=== PATIENT | male | born 1995 | race Caucasian/White ===

== ENCOUNTER 2018-03-31 16:38 | Emergency (ER) | payer OTHER ==
[2018-03-31 16:49] VITALS: BP 148/82
--- NOTE | 2018-03-31 17:00 | UC ---
Skin Complaint HPI - HPI Summary HPI Summary: 22 yo male presents with LEFT ear pain, swelling, and infected piercings. He tells me that 2 months ago he had two stainless steel tulalip piercings placed in the superior part of his left ear. Since yesterday this area has gotten very painful, red, swollen, and has some clear drainage. He tried to remove the piercings, but could not. He went to a local piercing establishment and asked them to remove the earrings, but they said that they had no tools to do this and to see a doctor - prompting his visit to the . Denies fever or chills - History of Current Complaint Chief Complaint: [facility] Time Seen by Provider: 03/31/18 16:59 Stated Complaint: EAR PEIRCING SWOLLEN AND RED Hx Obtained From: Patient Onset/Duration: Sudden Onset Onset Severity: Moderate Current Severity: Moderate Pain Intensity: 6 Pain Scale Used: 0-10 Numeric - Allergy/Home Medications Allergies/Adverse Reactions: Allergies Allergy/AdvReac Type Severity Reaction Status Date / Time No Known Allergies Allergy Verified 03/31/18 16:49 Home Medications: Home Medications Doxycycline Monohydrate 50 mg PO DAILY WITH MEAL 03/31/18 [History Confirmed ] Review of Systems Constitutional: Negative Skin: Other - Left ear redness, pain, and swelling Eyes: Negative ENT: Negative Respiratory: Negative Cardiovascular: Negative Neurovascular: Negative Musculoskeletal: Negative Neurological: Negative Psychological: Negative All Other Systems Reviewed And Are Negative: Yes PMH/Surg Hx/FS Hx/Imm Hx - Additional Past Medical History Additional PMH: Acne - Surgical History Surgical History: None Surgery Procedure, Year, and Place: denies - Social History Occupation: Student Lives: With Family Alcohol Use: Weekly Substance Use Type: None Smoking Status (MU): Never Smoked Tobacco Physical Exam - Summary Physical Exam Summary: GENERAL: NAD. WDWN. No pain distress. SKIN: See ear HEENT: Head: AT/NC Eyes: EOM intact. Conjunctiva clear without inflammation or discharge. Ears: Hearing grossly normal. LEFT superior pinna with moderate erythema and edema. Moderate TTP around two piercing sites. TM WNL. NECK: Supple. Nontender. No lymphadenopathy. CHEST: CTAB. No r/r/w. No accessory muscle use. Breathing comfortably and in no distress. CV: RRR. Without m/r/g. Pulses intact. Cap refill <2seconds NEURO: Alert. PSYCH: Age appropriate behavior. Triage Information Reviewed: Yes Vital Signs: Initial Vital Signs Temp 98.8 F 03/31/18 16:44 Pulse 80 03/31/18 16:44 Resp 18 03/31/18 16:44 BP 148/82 03/31/18 16:44 Pulse Ox 100 03/31/18 16:44 Vital Signs Reviewed: Yes Course/Dx - Course Course Of Treatment: The procedure was explained to the pt and all questions were answered. A time out was performed, witnessed, and signed. The area was cleansed with an alcohol pad. 1mL of 2% lidocaine without epi was administered and good anesthetization was achieved. Pt states that the piercings pull apart. This was attempted x3 with adsons, splinter forceps, hemostats, and manual gripping without success. Pt began to experience increased pain despite lidocaine. The procedure was stopped. I am unable to use a ring cutter or wire cutters as the piercings allow <2-3mm of area to work with. Therefore I will refer him to ENT for possible surgical removal. Will cover him with Keflex for cellulitis. Pt agreeable to plan. - Diagnoses Provider Diagnoses: Left ear piercing infection Discharge - Sign-Out/Discharge Documenting (check all that apply): Patient Departure All imaging exams completed and their final reports reviewed: No Studies - Discharge Plan Condition: Stable Disposition: HOME Prescriptions: Cephalexin CAP* [Keflex CAP*] 500 mg PO TID #21 cap Patient Education Materials: Wound Infection (ED) Referrals: No Primary Care Phys,NOPCP [Primary Care Provider] - Massimo Lehman MD [Medical Doctor] - As Soon As Possible Additional Instructions: If you develop a fever, shortness of breath, chest pain, new or worsening symptoms - please call your PCP or go to the ED. Your blood pressure was high at todays visit. Please see your primary provider within 4 weeks for recheck and re-evaluation. - Billing Disposition and Condition Condition: STABLE Disposition: Home
[2018-03-31] MEDS ORDERED: Lidocaine 2% PF * 5 ML VIAL INJ ONE (17:07)
== END 2018-03-31 18:00 | disposition home or self-care (01) ==
LOC: UCEAST 16:38
DX: L08.89 Other specified local infections of the skin and subcutaneous tissue (principal)
CPT/HCPCS: 99202; G0463